=== PATIENT | female | born 1965 | race Caucasian/White ===

== ENCOUNTER → 2021-11-16 | Outpatient (CLI) | payer BC ==
--- NOTE | 2021-11-16 16:16 | XR ---
EXAMINATION TYPE: XR hand complete RT DATE OF EXAM: 11/16/2021 COMPARISON: None HISTORY: Pain TECHNIQUE: 3 view right hand FINDINGS: No acute fracture or dislocation is evident. Joint spaces are preserved. Soft tissues appea r normal. Follow up exams can be performed 7-10 days from acute trauma for continued pain. IMPRESSION: 1. No acute osseous abnormality right hand.
--- NOTE | 2021-11-16 16:18 | XR ---
EXAMINATION TYPE: XR wrist complete RT DATE OF EXAM: 11/16/2021 COMPARISON: None HISTORY: Pain TECHNIQUE: 3 view right wrist FINDINGS: Alignment appears normal. Soft tissues appear normal. No acute fracture or dislocation is e vident. The ulna, the patient's area of pain, appears unremarkable. If there is pain at the anatomic snuff box, nuclear medicine bone scan could be performed for additio nal evaluation. Follow up exams can be performed 7-10 days from acute trauma for continued pain. IMPRESSION: 1. Normal 3 view right wrist.
== END | disposition home or self-care (01) ==
LOC: RADXRYALE 13:19
PROVIDERS: ATTEND Internal Medicine
DX: M25.531 Pain in right wrist (principal)

== ENCOUNTER → 2023-10-07 | Outpatient (CLI) | payer BC ==
--- NOTE | 2023-10-07 19:48 | US ---
EXAMINATION TYPE: US pelvic complete DATE OF EXAM: 10/07/2023 COMPARISON: 09/26/14 CLINICAL INDICATION: Female, 58 years old with history of N95.0 PODT MENOPAUSAL BLEEDING; Bleeding on September 19. Unsure if it came from vagina or urethra TECHNIQUE: Transabdominal sonographic images of the pelvis were acquired. Date of LMP: Postmenopause since 2017. Episode of bleeding on September 19 for a couple days EXAM MEASUREMENTS: Uterus: 8.2 x 6.2 x 3.7 cm Endometrial Stripe: 1.1 cm Right Ovary: 3.0 x 2.6 x 1.4 cm Left Ovary: 3.0 x 2.9 x 1.7 cm 1. Uterus: Anteverted Nabothian cyst seen in cx measuring 1.2 x 1.6 x 1.1cm 2. Endometrium: echogenic area seen measuring 0.4 x 0.6 x 0.3cm 3. Right Ovary: wnl 4. Left Ovary: wnl 5. Bilateral Adnexa: wnl 6. Posterior cul-de-sac: wnl IMPRESSION: 1. No evidence for acute pelvic process. 2. Endometrial hyperechoic focus possibly adjacent to the endometrium likely representing calcificat ion.
--- NOTE | 2023-10-07 20:09 | US ---
EXAMINATION TYPE: US kidneys/renal and bladder DATE OF EXAM: 10/07/2023 COMPARISON: 10/07/2023. CLINICAL INDICATION: Female, 58 years old with history of R31.9 HEMATURIA; Pt states she had bleeding September 19. Unsure if blood came from vagina or urethra. EXAM MEASUREMENTS: Right Kidney: 11.7 x 4.2 x 4.8 cm Left Kidney: 11.8 x 4.9 x 5.8 cm Right Kidney: No hydronephrosis or masses seen Left Kidney: No hydronephrosis or masses seen Bladder: Debris seen. Echogenic area seen inferiorly measuring 2.4 x 2.2 x 1.0 cm Bilateral Jets seen: Yes There is no evidence for hydronephrosis at this point in time. No nephrolithiasis is seen. No omaira s are identified. The urinary bladder is anechoic. Bilateral ureteral jets are seen. IMPRESSION: Masslike debris in the urinary bladder or clot which could represent blood clot versus underlying mas s. Consider further evaluation with CT urogram versus direct visualization.
== END | disposition home or self-care (01) ==
LOC: RADUSWWP 15:53
PROVIDERS: ATTEND Internal Medicine
DX: N95.0 Postmenopausal bleeding (principal); R31.9 Hematuria, unspecified
CPT/HCPCS: 76770; 76856